=== PATIENT | male | born 1955 | race Caucasian/White ===

== ENCOUNTER → 2020-07-25 | Outpatient (CLI) | payer MEDICARE, SELFPAY ==
[~2020-07-25] MED LIST: ANTIVERT 25MG T25 MG PO; BEE POLLEN PO; ELIQUIS2.5 MG PO; FLOMAX0.4 MG PO; HYDROCODON-ACE1 EAC6 PO; IBUPROFEN800 MG PO; LORTAB 7.5-3251 EACH PO; PERCOCET 10-321 EACH PO; PROSCAR 5 MG TAB5 MG PO; ZOFRAN ODT 4 MG4 MG SL
[2020-07-25 12:01] LABS: BUN/CREATININE RATIO 20 (0-10)
== END ==
LOC: LAB 11:05
PROVIDERS: Urology
DX: C61 Malignant neoplasm of prostate (principal)
CPT/HCPCS: 74018; 80053; 84153

== ENCOUNTER → 2020-10-03 | Day surgery (SDC) | payer MEDICARE, SELFPAY | END | disposition home or self-care (01) | LOC: OR 06:40 | DX: D12.0 Benign neoplasm of cecum (principal); K57.30 Diverticulosis of large intestine without perforation or abscess without bleeding; K64.1 Second degree hemorrhoids; E66.9 Obesity, unspecified; Z85.46 Personal history of malignant neoplasm of prostate; Z68.29 Body mass index [BMI] 29.0-29.9, adult; Z88.5 Allergy status to narcotic agent; Z79.899 Other long term (current) drug therapy | CPT/HCPCS: J2704; J7040 ==

== ENCOUNTER → 2020-10-26 | Outpatient (CLI) | payer MEDICARE, SELFPAY ==
[2020-10-26 10:37] LABS: BUN/CREATININE RATIO 17 (0-10)
== END ==
LOC: LAB 09:46
PROVIDERS: Urology
DX: C61 Malignant neoplasm of prostate (principal); K59.00 Constipation, unspecified
CPT/HCPCS: 36415; 74018; 80053; 84153

== ENCOUNTER → 2020-11-09 | Outpatient (CLI) | payer MEDICARE | LOC: RAD 11:10 | DX: N20.0 Calculus of kidney (principal) | CPT/HCPCS: 74018 ==

== ENCOUNTER → 2021-01-24 | Outpatient (CLI) | payer MEDICARE ==
[2021-01-24 11:50] LABS: BUN/CREATININE RATIO 17 (0-10)
== END ==
LOC: LAB 10:19
PROVIDERS: Urology
DX: C61 Malignant neoplasm of prostate (principal); N20.0 Calculus of kidney; K59.00 Constipation, unspecified
CPT/HCPCS: 36415; 74018; 80053; 84153

== ENCOUNTER → 2021-04-25 | Outpatient (CLI) | payer MEDICARE ==
[2021-04-25 13:38] LABS: BUN/CREATININE RATIO 24 (0-10)
== END ==
LOC: LAB 11:26
PROVIDERS: Urology
DX: C61 Malignant neoplasm of prostate (principal); R14.3 Flatulence
CPT/HCPCS: 36415; 74018; 80053; 84153

== ENCOUNTER → 2021-07-24 | Outpatient (CLI) | payer MEDICARE, OTHER ==
[2021-07-24 10:57] LABS: BUN/CREATININE RATIO 16 (0-10)
== END ==
LOC: RAD 09:31
PROVIDERS: Urology
DX: C61 Malignant neoplasm of prostate (principal); R14.0 Abdominal distension (gaseous)
CPT/HCPCS: 36415; 74018; 80053; 84153

== ENCOUNTER 2021-09-13 09:07 | Emergency (ER) | payer OTHER, MEDICARE | END 2021-09-13 12:40 | disposition home or self-care (01) | LOC: ER1 09:07 | DX: S16.1XXA Strain of muscle, fascia and tendon at neck level, initial encounter (principal); S29.012A Strain of muscle and tendon of back wall of thorax, initial encounter; V43.52XA Car driver injured in collision with other type car in traffic accident, initial encounter; Y92.410 Unspecified street and highway as the place of occurrence of the external cause | CPT/HCPCS: 72125; 72128; 73562; 99284 ==

== ENCOUNTER → 2021-10-24 | Outpatient (CLI) | payer MEDICARE ==
[2021-10-24 10:49] LABS: BUN/CREATININE RATIO 19 (0-10)
== END ==
LOC: LAB 09:51
PROVIDERS: Urology
DX: C61 Malignant neoplasm of prostate (principal)
CPT/HCPCS: 36415; 74018; 80053; 84153

== ENCOUNTER → 2022-01-29 | Outpatient (CLI) | payer MEDICARE ==
[2022-01-29 14:28] LABS: BUN/CREATININE RATIO 24 (0-10)
== END ==
LOC: LAB 12:00
PROVIDERS: Urology
DX: C61 Malignant neoplasm of prostate (principal); R31.1 Benign essential microscopic hematuria
CPT/HCPCS: 36415; 74018; 80053; 84153; 87086